=== PATIENT | male | born 1960 | race Two or more races ===

== ENCOUNTER 2018-12-08 17:12 | Emergency (ER) | payer SELFPAY ==
[2018-12-08] MEDS ORDERED: PREDNISONE 20 MG TABLET PO ONE (17:37)
--- NOTE | 2018-12-08 17:39 | ER Document Report ---
ED Medical Screen (RME) - General Chief Complaint: Hand Swelling Stated Complaint: HAND PAIN Time Seen by Provider: 12/08/18 17:36 Mode of Arrival: Ambulatory Information source: Patient Notes: 58-year-old male presented to ED for complaint of pain to his right hand wrist. He states he has had gout in the past and [facility] and [facility] put him on naproxen. He states he never gets any other treatment for it. He states that this time it is bad and going up his arm. He states the pain is much worse when he is laying still and is not as bad when he is working. Patient is alert oriented respirations regular and unlabored speaking in full sentences. He does have a history of gout and high blood pressure. He states he smokes half pack a day drinks 2 cans of beer a day works at a [employer] with his family. I have greeted and performed a rapid initial assessment of this patient. A comprehensive ED assessment and evaluation of the patient, analysis of test results and completion of medical decision making process will be conducted by an additional ED providers. - Related Data Allergies/Adverse Reactions: No Known Allergies Allergy (Verified 12/08/18 17:14) Physical Exam - Vital signs Vitals: Temp Pulse Resp BP Pulse Ox 98.1 F 109 H 15 153/94 H 97 12/08/18 17:16 12/08/18 17:16 12/08/18 17:16 12/08/18 17:16 12/08/18 17:16 Course - Vital Signs Vital signs: Temp Pulse Resp BP Pulse Ox 98.1 F 109 H 15 153/94 H 97 12/08/18 17:16 12/08/18 17:16 12/08/18 17:16 12/08/18 17:16 12/08/18 17:16
--- NOTE | 2018-12-08 18:10 | RADIOLOGY REPORT (SQ) ---
EXAM DESCRIPTION: HAND RIGHT 3 VIEWS COMPLETED DATE/TIME: 12/08/2018 5:58 pm REASON FOR STUDY: right hand swelling COMPARISON: None. EXAM PARAMETERS: NUMBER OF VIEWS: Three views. TECHNIQUE: AP, lateral and oblique radiographic images acquired of the right hand. LIMITATIONS: None. FINDINGS: MINERALIZATION: Normal. BONES: No acute fracture or dislocation. No worrisome bone lesions. JOINTS: No effusions. SOFT TISSUES: No soft tissue swelling. No foreign body. OTHER: No other significant finding. IMPRESSION: NEGATIVE STUDY OF THE RIGHT HAND. NO RADIOGRAPHIC EVIDENCE OF ACUTE INJURY. TECHNICAL DOCUMENTATION: JOB ID: [id number] [employer]- All Rights Reserved Reading location - IP/workstation name: [email or web address]
[2018-12-08] MEDS ORDERED: NAPROXEN 250 MG TABLET PO ONE (18:15)
[2018-12-08 18:18] LABS: ABSOLUTE BASOPHILS # (AUTO) 0.2 10^3/uL (0.0-0.2); ABSOLUTE EOSINOPHILS # (AUTO) 0.3 10^3/uL (0.0-0.6); ABSOLUTE LYMPHOCYTES (AUTO) 2.6 10^3/uL (0.5-4.7); ABSOLUTE MONOCYTES (AUTO) 1.5 10^3/uL (0.1-1.4); ABSOLUTE NEUT (AUTO) 10.8 10^3/uL (1.7-8.2); BASOPHILS % (AUTO) 1.3 % (0-2); EOSINOPHILS % (AUTO) 1.9 % (0-6); HEMATOCRIT 39.4 % (37.9-51.0); HEMOGLOBIN 12.9 g/dL (13.5-17.0); LYMPHOCYTES % (AUTO) 16.8 % (13-45); MEAN CORPUSCULAR HEMOGLOBIN 25.6 pg (27.0-33.4); MEAN CORPUSCULAR HGB CONC 32.8 g/dL (32.0-36.0); MEAN CORPUSCULAR VOLUME 78 fl (80-97); MONOCYTES % (AUTO) 9.5 % (3-13); PLATELET COUNT 471 10^3/uL (150-450); RED BLOOD COUNT 5.05 10^6/uL (4.35-5.55); RED CELL DISTRIBUTION WIDTH 15.1 % (11.5-14.0); SEGMENTED NEUTROPHILS % (AUTO) 70.5 % (42-78); TOTAL CELLS COUNTED % (AUTO) 100 %; WHITE BLOOD COUNT 15.4 10^3/uL (4.0-10.5)
[2018-12-08 18:33] LABS: ALBUMIN 4.3 g/dL (3.5-5.0); ALKALINE PHOSPHATASE 74 U/L (38-126); ANION GAP 11 (5-19); ASPARTATE AMINO TRANSFERASE 18 U/L (17-59); BILIRUBIN,DIRECT 0.3 mg/dL (0.0-0.4); BILIRUBIN,TOTAL 0.3 mg/dL (0.2-1.3); BLOOD UREA NITROGEN 24 mg/dL (7-20); CALCIUM 9.7 mg/dL (8.4-10.2); CARBON DIOXIDE 26 mmol/L (22-30); CHLORIDE 104 mmol/L (98-107); GLUCOSE 142 mg/dL (75-110); POTASSIUM 4.6 mmol/L (3.6-5.0); TOTAL PROTEIN 7.3 g/dL (6.3-8.2)
[2018-12-08] MEDS ORDERED: NORMAL SALINE 1000 ML 1,000 ML IV ONE (19:21)
--- NOTE | 2018-12-08 20:35 | ER Document Report ---
ED General - General Chief Complaint: Hand Swelling Stated Complaint: HAND PAIN Time Seen by Provider: 12/08/18 17:36 Mode of Arrival: Ambulatory Notes: [place] NOTE: 58-year-old male presented to ED for complaint of pain to his right hand wrist. He states he has had gout in the past and [facility] and [facility] him [facility] naproxen. He states he never gets any other treatment for it. He states that this time it is bad and going up his arm. He states the pain is much worse when he is laying still and is not as bad when he is working. Patient is alert oriented respirations regular and unlabored speaking in full sentences. He does have a history of gout and high blood pressure. He states he smokes half pack a day drinks 2 cans of beer a day works at a [employer] with his family. MY HPI: Patient has noted generalized swelling and redness to MCP joints of index, middle, ring finger. States this redness has been for the last 3 to 4 days. Patient's denying any fever or trauma to the right hand. States he was at his PCP on Wednesday and was placed on naproxen. States he does have a history of gout, has had gout in his right wrist, right MCP joints, left ankle, left great toe. States typically naproxen helps with his generalized pain but naproxen had not been helping which is why he presents to the emergency department. Patient does have a history of hypertension but is unsure what medications he takes. - Related Data Allergies/Adverse Reactions: No Known Allergies Allergy (Verified 12/08/18 17:14) Past Medical History - General Information source: Patient - Social History Smoking Status: Current Every Day Smoker Frequency of alcohol use: Social Drug Abuse: None Family History: Reviewed & Not Pertinent Patient has suicidal ideation: No Patient has homicidal ideation: No - Past Medical History Cardiac Medical History: Reports: Hx Hypertension Renal/ Medical History: Denies: Hx Peritoneal Dialysis Review of Systems - Review of Systems Constitutional: denies: Fever EENT: No symptoms reported Cardiovascular: No symptoms reported Respiratory: No symptoms reported Gastrointestinal: No symptoms reported Genitourinary: No symptoms reported Male Genitourinary: No symptoms reported Musculoskeletal: See HPI Skin: See HPI Hematologic/Lymphatic: No symptoms reported Neurological/Psychological: No symptoms reported Physical Exam - Vital signs Vitals: Temp Pulse Resp BP Pulse Ox 98.1 F 109 H 15 153/94 H 97 12/08/18 17:16 12/08/18 17:16 12/08/18 17:16 12/08/18 17:16 12/08/18 17:16 - Notes Notes: GENERAL: Alert, interacts well. No acute distress. HEAD: Normocephalic, atraumatic. EYES: Pupils equal, round, and reactive to light. Extraocular movements intact. ENT: Oral mucosa moist, tongue midline. NECK: Full range of motion. Supple. Trachea midline. LUNGS: Clear to auscultation bilaterally, no wheezes, rales, or rhonchi. No respiratory distress. HEART: Regular rate and rhythm. No murmur ABDOMEN: Soft, non-tender. Non-distended. Bowel sounds present in all 4 quadrants. EXTREMITIES: Moves all 4 extremities spontaneously. normal radial and dorsalis pedis pulses bilaterally. No cyanosis. Full range of motion right shoulder, right elbow, right wrist. Generalized erythema and swelling noted right index, middle, ring finger MCP joint. Decreased range of motion at MCP joint secondary due to pain. Redness extends laterally and distally around the MCP joint slightly. BACK: no cervical, thoracic, lumbar midline tenderness. No saddle anesthesia, normal distal neurovascular exam. NEUROLOGICAL: Alert and oriented x3. Normal speech. cranial nerves II through XII grossly intact. PSYCH: Normal affect, normal mood. SKIN: Warm, dry, normal turgor. Capillary refill less than 2 seconds distally all 5 fingers on the right hand. Course - Re-evaluation Re-evalutation: Laboratory 12/08/18 12/08/18 12/08/18 18:01 18:01 18:01 WBC 15.4 H RBC 5.05 Hgb 12.9 L Hct 39.4 MCV 78 L MCH 25.6 L MCHC 32.8 RDW 15.1 H Plt Count 471 H Lymph % (Auto) 16.8 [place] % (Auto) 9.5 Eos % (Auto) 1.9 Baso % (Auto) 1.3 Absolute Neuts (auto) 10.8 H Absolute Lymphs (auto) 2.6 Absolute Monos (auto) 1.5 H Absolute Eos (auto) 0.3 Absolute Basos (auto) 0.2 Seg Neutrophils % 70.5 Sodium 140.9 Potassium 4.6 Chloride 104 Carbon Dioxide 26 Anion Gap 11 BUN 24 H Creatinine 1.53 H Est GFR ( Amer) 57 L Est GFR (MDRD) Non-Af 47 L Glucose 142 H Uric Acid 9.9 H Calcium 9.7 Total Bilirubin 0.3 Direct Bilirubin 0.3 Neonat Total Bilirubin Not Reportable Neonat Direct Bilirubin Not Reportable Neonat Indirect Bili Not Reportable AST 18 ALT 9 Alkaline Phosphatase 74 Total Protein 7.3 Albumin 4.3 Hand X-Ray 12/08/18 17:32 IMPRESSION: NEGATIVE STUDY OF THE RIGHT HAND. NO RADIOGRAPHIC EVIDENCE OF ACUTE INJURY. Patient's labs do show a leukocytosis of 15.4. BUN, creatinine, GFR 24, 1.53, 47 respectively. Patient does have a uric acid noted to be 9.9. On the acute g out calculator patient is a 12.5. This is consistent with gout. Based on the fact that the naproxen is not helping which typically helps with patient's gout flares, patient has a leukocytosis with increased redness noted to the right hand I will treat with antibiotics. Patient's kidney function was also elevated, treated with saline solution in the emergency department. Repeat BMP pending. 12/08/18 21:56 Patient's BUN, creatinine, GFR have improved, 22, 1.30, 57 respectively. Discussed with patient continued use of naproxen, staying well-hydrated, antibiotic use. At this time will discharge with return precautions and follow-up recommendations. Verbal discharge instructions given a the bedside and opportunity for questions given. Medication warnings reviewed. Patient is in agreement with this plan and has verbalized understanding of return precautions and the need for primary care follow-up in the next 24-72 hours. This medical record was dictated with voice recognizing software. There may be grammatical, syntax errors that are unintended. - Vital Signs Vital signs: Temp Pulse Resp BP Pulse Ox 98.3 F 87 18 136/86 H 98 12/08/18 22:13 12/08/18 22:13 12/08/18 22:13 12/08/18 22:13 12/08/18 22:13 - Laboratory Result Diagrams: 12/08/18 18:01 12/08/18 21:05 Laboratory results interpreted by me: 12/08/18 12/08/18 12/08/18 18:01 18:01 18:01 WBC 15.4 H Hgb 12.9 L MCV 78 L MCH 25.6 L RDW 15.1 H Plt Count 471 H Absolute Neuts (auto) 10.8 H Absolute Monos (auto) 1.5 H Chloride Carbon Dioxide BUN 24 H Creatinine 1.53 H Est GFR ( Amer) 57 L Est GFR (MDRD) Non-Af 47 L Glucose 142 H Uric Acid 9.9 H 12/08/18 21:05 WBC Hgb MCV MCH RDW Plt Count Absolute Neuts (auto) Absolute Monos (auto) Chloride 108 H Carbon Dioxide 21 L BUN 22 H Creatinine 1.30 H Est GFR ( Amer) Est GFR (MDRD) Non-Af 57 L Glucose Uric Acid Discharge - Discharge Clinical Impression: Gout Qualifiers: Gout site: hand Gout etiology: unspecified cause Chronicity: acute Laterality: right Qualified Code(s): M10.9 - Gout, unspecified Cellulitis Qualifiers: Site of cellulitis: extremity Site of cellulitis of extremity: upper extremity Laterality: right Qualified Code(s): L03.113 - Cellulitis of right upper limb Condition: Stable Disposition: HOME, SELF-CARE Instructions: Cellulitis ([facility]), Gout ([facility]), Gout Diet ([facility]) Additional Instructions: As we discussed you have been seen and treated in the emergency department for a gout flare. Based on the fact that naproxen is not initially helping her pain I am going to start you on antibiotics in case this is also a bacterial infection. Please make sure you are taking naproxen as prescribed by your primary care provider. Please also make sure you take antibiotics as prescribed. Please follow-up with your primary care provider in the next 24 to 48 hours. Please return to the emergency room for any further concerns. Prescriptions: Cephalexin Monohydrate [Keflex 500 mg Capsule] 500 mg PO BID 7 Days #14 capsule
[2018-12-08 21:38] LABS: ANION GAP 10 (5-19); BLOOD UREA NITROGEN 22 mg/dL (7-20); CALCIUM 8.7 mg/dL (8.4-10.2); CARBON DIOXIDE 21 mmol/L (22-30); CHLORIDE 108 mmol/L (98-107); GLUCOSE 95 mg/dL (75-110); POTASSIUM 4.5 mmol/L (3.6-5.0)
[2018-12-08 22:14] VITALS: BP 136/86
== END 2018-12-08 22:14 | disposition home or self-care (01) ==
LOC: ER 17:12
DX: M10.9 Gout, unspecified (principal); L03.113 Cellulitis of right upper limb; M79.641 Pain in right hand; M25.531 Pain in right wrist; I10 Essential (primary) hypertension; F17.200 Nicotine dependence, unspecified, uncomplicated; D72.829 Elevated white blood cell count, unspecified
CPT/HCPCS: 36415; 85025; 87040; 84550; 80053; 73130; J7512; J7030